=== PATIENT | male | born 1940 | race Caucasian/White ===

== ENCOUNTER 2019-12-28 13:21 | Emergency (ER) | payer OTHER, SELFPAY ==
[2019-12-28] VITALS (19 sets, daily range): BP systolic 103–142; BP diastolic 59–73; PULSE 65–87; RESP 16–31; TEMP 36.2; O2SAT 88–97
--- NOTE | ~2019-12-28 | CT_ITS ---
EXAMINATION: CT abdomen pelvis w con INDICATION: Abdominal pain and diarrhea TECHNIQUE: Computed tomographic images of the abdomen and pelvis were obtained after the administrati on of 100 cc of Omnipaque 350 intravenous contrast. The dose-length product (DLP) was 287.26 mGy-cm. Automated exposure control and iterative reconstruction technique were employed. COMPARISON: None available FINDINGS: Minimal dependent atelectasis is present in the lung bases. The heart size is normal. Calci fied coronary artery atherosclerosis is noted. There is elevation of the left hemidiaphragm. The live r, spleen, pancreas, and adrenal glands are normal. The gallbladder is not identified, likely surgica lly absent. The kidneys are unremarkable. There is calcified atherosclerosis of the aorta and many of the other arteries. There are changes of left inguinal hernia repair. There is a right inguinal nilsa ia containing a short segment of nonobstructed small bowel. A small amount of ascites is present in t he hernia sac. No pathologically enlarged abdominal or pelvic lymph nodes are identified. There is mo derate lumbar spondylosis. IMPRESSION: 1. Right internal hernia containing a short segment of nonobstructed small bowel in a small amount of ascites. Reviewed, dictated and finalized at location A. IMPRESSION: 1. Right internal hernia containing a short segment of nonobstructed small davi l in a small amount of ascites.
[2019-12-28 14:03] LABS: Basophils Percent Auto 0.4 % (0.2-1.2); Eosinophils Percent Auto 0.6 % (0-4.4); Hematocrit 47.7 % (42.0-52.0); Hemoglobin 15.8 g/dL (14.0-18.0); Immature Granulocyte Absolute 0.02 K/mm3 (0.00-0.031); Immature Granulocyte Percent A 0.4 % (0-0.5); Lymphocytes Absolute Auto 1.25 K/mm3 (0.9-3.2); Mean Corpuscular HGB Conc 33.1 g/dl (32-36); Mean Corpuscular Hemoglobin 30.2 pg (26-34); Mean Platelet Volume 11.2 fl (7.4-10.4); Monocytes Absolute Auto 0.4 K/mm3 (0.1-0.6); Monocytes Percent Auto 8.3 % (2.6-8.5); Neutrophils Absolute Auto 3.5 K/mm3 (1.3-6.7); Neutrophils Percent Auto 66.3 % (45.5-73.1); Platelet Count Result 205 k/mm3 (150-375); Red Blood Count 5.24 M/mm3 (4.6-6.20); Red Cell Distribution Width 13.7 % (11.5-14.5); White Blood Count 5.2 K/mm3 (4.5-10.0)
[2019-12-28 14:14] LABS: Alanine Aminotransferase 21 U/L (4-50); Albumin Level 4.5 g/dL (3.5-5.1); Alkaline Phosphatase 44 U/L (38-126); Aspartate Amino Transferase 38 U/L (17-59); Bilirubin,Total 0.5 mg/dL (0.2-1.3); Blood Urea Nitrogen 20 mg/dL (9-20); Calcium 9.4 mg/dL (8.4-10.2); Carbon Dioxide 28 mmol/L (22-30); Chloride 104 mmol/L (98-107); Estimated CRCL calculation 75 ml/min; Estimated Glomerular Filt Rate > 60; Glucose 136 mg/dL (75-110); Lipase 75 U/L (23-300); Potassium 4.4 mmol/L (3.4-5.0); Sodium 140 mmol/L (137-145)
--- NOTE | 2019-12-28 14:20 | ED.NAVMDI ---
HPI - Nausea/Vomiting/Diarrhea General Chief complaint: Nausea/Vomiting/Diarrhea <Yahaira Luis PA-C - Last Filed: 12/28/19 16:54> Stated complaint: diarrhea <Yahaira Luis PA-C - Last Filed: 12/28/19 16:54> Time Seen by Provider: 12/28/19 14:10 <Yahaira Luis PA-C - Last Filed: 12/28/19 16:54> Source: patient <Yahaira Luis PA-C - Last Filed: 12/28/19 16:54> Mode of arrival: wheelchair <Yahaira Luis PA-C - Last Filed: 12/28/19 16:54> Limitations: no limitations <Yahaira Luis PA-C - Last Filed: 12/28/19 16:54> History of Present Illness HPI Narrative: This is a 79 year old male that presents to the ER for diarrhea x 2 weeks. Reports he has had episodes daily of loose stools. No recent antibiotic use. Associated with some abdominal discomfort. Reports he does have history of celiac disease. Denies fever, nausea, vomiting, or hematochezia. <Yahaira Luis PA-C - Last Filed: 12/28/19 16:54> Related Data Allergies/Adverse reactions: Allergies Allergy/AdvReac Type Severity Reaction Status Date / Time No Known Allergies Allergy Unverified 12/05/16 19:25 <Yahaira Luis PA-C - Last Filed: 12/28/19 16:54> Review of Systems Review of Systems: Narrative: CONSTITUTIONAL: Denies fever GASTROINTESTINAL: Reports abdominal pain and diarrhea. Denies nausea, vomiting GENITOURINARY: Denies dysuria or hematuria. <Yahaira Luis PA-C - Last Filed: 12/28/19 16:54> All systems reviewed & are unremarkable except as noted in HPI and below <Yahaira Luis PA-C - Last Filed: 12/28/19 16:54> PMFSH Past Medical History Medical History: Medical History (Updated 12/28/19 @ 16:54 by Yahaira Luis PA-C) Charcot-Linh disease Hyperlipidemia <Yahaira Luis PA-C - Last Filed: 12/28/19 16:54> Social History Social History: Social History Smoking status: Former smoker Alcohol intake: current Gender identity (if verbalized by the patient): Male <Yahaira Luis PA-C - Last Filed: 12/28/19 16:54> Exam Narrative: Exam Narrative: GENERAL: Elderly, well-nourished, and in no acute distress. HEAD: Normocephalic, atraumatic. EYES: EOMI. CHEST: Clear to auscultation. No respiratory distress. No wheezes rales or rhonchi HEART: Regular rate and rhythm. No murmur heard. Normal peripheral pulses. ABDOMEN: Soft, nondistended, normal active bowel sounds. Mild tenderness to palpation throughout the lower abdomen, without guarding EXTREMITIES: Normal range of motion. No edema. SKIN: Warm, dry, no rash. NEURO: No focal deficits. Alert and oriented x3. PSYCH: Normal mood and affect <Yahaira Luis PA-C - Last Filed: 12/28/19 16:54> Course Vital Signs Vital signs: Vital Signs Temperature 97.1 F L 12/28/19 13:28 Pulse Rate 87 12/28/19 13:28 Respiratory Rate 16 12/28/19 13:28 Blood Pressure 113/67 12/28/19 13:28 Pulse Oximetry 97 12/28/19 13:28 Temperature 97.1 F L 12/28/19 13:28 Pulse Rate 65 12/28/19 16:31 Respiratory Rate 21 H 12/28/19 16:31 Blood Pressure 103/59 L 12/28/19 16:31 Pulse Oximetry 96 12/28/19 16:31 <DEBBIE Weems Last Filed: 12/28/19 16:54> Vital Signs Temperature 97.1 F L 12/28/19 13:28 Pulse Rate 87 12/28/19 13:28 Respiratory Rate 16 12/28/19 13:28 Blood Pressure 113/67 12/28/19 13:28 Pulse Oximetry 97 12/28/19 13:28 Temperature 97.1 F L 12/28/19 13:28 Pulse Rate 65 06/16/20 16:31 Respiratory Rate 21 H 12/28/19 16:31 Blood Pressure 103/59 L 12/28/19 16:31 Pulse Oximetry 96 12/28/19 16:31 <Rama Ugalde MD - Last Filed: 12/28/19 18:42> MDM - Nausea/Vomiting/Diarrhea MDM Narrative Medical decision making narrative: This is a 79 year old male that presents to the ER for diarrhea x 2 weeks. Reports no episodes of diarrhea today. No recent antibiotic use. Patient is afebri
[2019-12-28 16:34] LABS: Add Urine Microscopic? YES; Amorphous Sediment Urine Few; Appearance Urine Cloudy (Clear); Bacteria Urine Trace /hpf; Bilirubin Urine Negative (Negative); Blood Urine Negative (Negative); Color Urine Yellow (Yellow); Glucose Urine UA Negative (Negative); Ketones Urine Negative (Negative); Leukocyte Esterase Ur Negative LEU/UL (Negative); Nitrate Urine Negative (Negative); Protein Urine Negative (Negative); Urobilinogen Urine Negative mg/dL (<2.0)
[2019-12-28 16:36] LABS: Specific Grav Ur > 1.060 (1.001-1.035)
== END 2019-12-28 17:11 | disposition home or self-care (01) ==
PROVIDERS: Emergency Provider General Practice; PCP Emergency Medicine
DX: R19.7 Diarrhea, unspecified (principal); K40.90 Unilateral inguinal hernia, without obstruction or gangrene, not specified as recurrent; E78.5 Hyperlipidemia, unspecified; G60.0 Hereditary motor and sensory neuropathy
CPT/HCPCS: 36415; 74177; 80053; 81001; 83690; 85025; 99284; Q9967

== ENCOUNTER 2020-07-21 13:31 | Emergency (ER) | payer OTHER, SELFPAY ==
[2020-07-21 14:02] VITALS: BP 128/63; PULSE 94; RESP 18; TEMP 36.4; O2SAT 100
--- NOTE | 2020-07-21 14:52 | ED.EAR ---
HPI - Ear Problem General Chief complaint: Ear Stated complaint: ear wax buildup Time Seen by Provider: 07/21/20 14:21 Source: patient and RN notes reviewed Mode of arrival: ambulatory Limitations: no limitations History of Present Illness HPI Narrative: Patient presents today requesting earwax removal. States he has been unable to hear out of both ears x1 week. He has tried earwax softening drops in both ears over the past week without relief of symptoms. He does wear bilateral hearing aids as well. Denies any sick symptoms. Denies drainage or blood from the ears. MD Complaint: decreased hearing and other (Bilateral cerumen impactions) Related Data Home Medications Medication Instructions Recorded Confirmed calcium 600 mg capsule See Rx Instructions .ROUTE .COMPLEX 03/15/20 Allergies Allergy/AdvReac Type Severity Reaction Status Date / Time No Known Allergies Allergy Unverified 12/05/16 19:25 Review of Systems Review of Systems: Narrative: CONSTITUTIONAL: Denies body aches, fever, chills, or sweats. EYES: Denies visual changes, redness, or discharge. ENT: Denies rhinorrhea, congestion, sore throat, or otalgia.+ Bilateral cerumen impactions CARDIOVASCULAR: Denies chest pain, palpitations, or edema. RESPIRATORY: Denies cough or dyspnea. GASTROINTESTINAL: Denies abdominal pain, nausea, vomiting, or diarrhea. GENITOURINARY: Denies dysuria or hematuria. SKIN: Denies rash, itching, or wounds. MUSCULOSKELETAL: Denies back pain, joint pain, or myalgia. NEUROLOGIC: Denies headache, numbness, tingling, or weakness. PSYCH: Denies depression or anxiety. [facility] Past Medical History Medical History Charcot-Linh disease Hyperlipidemia Family History Family History Sibling Family history of muscular dystrophy Mother Family history of cardiovascular disease, Onset Age: 91 Father Family history of liver disease, Onset Age: 55 Social History Social History Smoking status: Former smoker Alcohol intake: current Gender identity (if verbalized by the patient): Male Comments At time of signature, I have reviewed and agree with nursing past medical, surgical, social and family history unless otherwise noted. Please see nursing chart for further information. There is no relevant family history pertinent to the presenting complaint Exam Narrative: Exam Narrative: GENERAL: Well-appearing, well-nourished, and in no acute distress. HEAD: Normocephalic, atraumatic. EYES: EOMI. No redness or drainage. Conjunctivae normal. ENT: Mucous membranes pink and moist. Nares clear. No rhinorrhea. Bilateral cerumen impactions. NECK: Normal AROM. Supple. No lymphadenopathy. CHEST: No respiratory distress. EXTREMITIES: Normal range of motion. No edema. SKIN: Warm, dry, no rash. Capillary refill normal. Normal skin turgor. NEURO: No focal deficits. Alert and oriented x3. Gait steady. PSYCH: Normal affect. No signs of depression or anxiety. Course Vital Signs Vital signs: Vital Signs Temperature 97.5 F L 07/21/20 14:02 Pulse Rate 94 07/21/20 14:02 Respiratory Rate 18 07/21/20 14:02 Blood Pressure 128/63 07/21/20 14:02 Pulse Oximetry 100 07/21/20 14:02 Temperature 97.5 F L 07/21/20 14:02 Pulse Rate 94 07/21/20 14:02 Respiratory Rate 18 07/21/20 14:02 Blood Pressure 128/63 07/21/20 14:02 Pulse Oximetry 100 07/21/20 14:02 At time of signature, I have reviewed and agree with nursing past medical, surgical, social and family history unless otherwise noted. Please see nursing chart for further information. There is no relevant family history pertinent to the presenting complaint Procedures Ear Wax Removal Both Ears: Ear Wax Removal Date: 07/21/20 Ear Wax Removal Ti
--- NOTE | 2020-07-21 14:53 | PC.NURSE ---
stated feels much better, now noone has to yell. after ear wax removal flush done, berny. hearing aids put back in ears upon pt request.
== END 2020-07-21 14:56 | disposition home or self-care (01) ==
PROVIDERS: Emergency Provider Nurse Practitioner; PCP Emergency Medicine
DX: H61.23 Impacted cerumen, bilateral (principal); Z87.891 Personal history of nicotine dependence; E78.5 Hyperlipidemia, unspecified; G60.0 Hereditary motor and sensory neuropathy
CPT/HCPCS: 69210; 99212; G0463

== ENCOUNTER 2020-09-28 13:59 | Emergency (ER) | payer OTHER, SELFPAY ==
--- NOTE | ~2020-09-28 | XR_ITS ---
EXAMINATION: XR knee RT 2V DATE: 09/28/2020 14:47 INDICATION: Right knee pain. TECHNIQUE: 2 views of right knee were obtained. COMPARISON: None. FINDINGS: There is a transverse fracture of metaphysis of proximal tibia. The distal fracture fragmen t demonstrates 10 degrees posterior angulation and one cortical width medial displacement. There is a transverse fracture of neck of proximal fibula with impaction. 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 No knee joint effusion. IMPRESSION: 1. Transverse fracture of metaphysis of proximal tibia. 2. Transverse fracture of neck of proximal fibula. Reviewed, dictated and finalized at location A.
--- NOTE | 2020-09-28 14:24 | ED.LOWEXIN ---
HPI - Extremity Injury (Lower) General Chief Complaint: Extremity Injury, Lower Stated Complaint: right knee pain Time Seen by Provider: 09/28/20 14:24 Source: patient and RN notes reviewed Limitations: no limitations History of Present Illness HPI Narrative: 80 yo male presents to the [facility] with bilateral knee pain, worse on the right then the left. is with him. States that he was transferring from the couch to the motor scooter via slide board and fell onto his knees yesterday. 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 Related Data Home Medications Medication Instructions Recorded Confirmed calcium 600 mg capsule See Rx Instructions .ROUTE .COMPLEX 03/15/20 Allergies Allergy/AdvReac Type Severity Reaction Status Date / Time No Known Allergies Allergy Unverified 12/05/16 19:25 Review of Systems Review of Systems: Narrative: CONSTITUTIONAL: Denies fever, chills, or sweats. EYES: Denies visual changes, redness, or discharge. ENT: Denies rhinorrhea, congestion, sore throat, or otalgia. CARDIOVASCULAR: Denies chest pain, palpitations, or edema. RESPIRATORY: Denies cough or dyspnea. GASTROINTESTINAL: Denies abdominal pain, nausea, vomiting, or diarrhea. GENITOURINARY: Denies dysuria or hematuria. SKIN: Denies rash or itching. MUSCULOSKELETAL: Denies back pain or myalgia. Reports right knee pain with swelling NEUROLOGIC: Denies headache, numbness, or weakness. PSYCHIATRIC: Denies anxiety or depression. All other systems reviewed are negative, except as documented in HPI. [facility] Past Medical History Medical History Charcot-Linh disease Hyperlipidemia Family History Family History Sibling Family history of muscular dystrophy Mother Family history of cardiovascular disease, Onset Age: 91 Father Family history of liver disease, Onset Age: 55 Social History Social History Smoking status: Former smoker Alcohol intake: current Gender identity (if verbalized by the patient): Male Comments At the time of my signature, I reviewed and agree with the nursing past medical, surgical, social, and family history. There is no relevant family history pertinent to the patient complaint. Exam Narrative: Exam Narrative: GENERAL: This is a well-nourished, well-developed patient, in no apparent distress. HEAD: normocephalic, atraumatic. EYES: PERRL. Sclera clear/white. Vision is grossly intact. EARS: External ears normal NECK: Neck supple, non-tender. CARDIOVASCULAR: Regular rate and rhythm without murmurs, gallops, or rubs. RESPIRATORY: Clear to auscultation. Breath sounds equal bilaterally. No wheezes, rales, or rhonchi. GASTROINTESTINAL: Abdomen soft, non-tender. SKIN: warm, intact with no suspicious lesions or rash, good texture and turgor. NEURO: awake, alert, and oriented to person, place and time. There were no obvious focal neurologic abnormalities. EXTREMITIES: Right knee joint tenderness, swelling/ large effusion. Bilateral AFO braces in place due to past medical. BACK: Nontender without deformity. Course Course Emergency Course: [address] Tolbetr. He states he would like to look at the x-ray and will call back. 1520 Dr. Tolbert called back, states he did look at the x-ray and believe it is more subacute at least 6 weeks post trauma. Recommending a knee immobilizer, be nonweightbearing. With patient and . Patient denies any recent trauma to the area. Denies falling or any other issues with his knees. States that he broke his patella in 2006 he believes. Vital Signs Vital signs: Vital Signs Temperature 96.7 F L 09/28/20 14:31 Pulse Rate 86 09/28/20 14:31 Respiratory Rate 16 09/28/20 14:31 Blood Pressure 141/62 H 09/28/20 14:31 Puls
[2020-09-28 14:31] VITALS: BP 141/62; PULSE 86; RESP 16; TEMP 35.9; O2SAT 98
--- NOTE | 2020-09-28 15:02 | PC.NURSE ---
parts department manager consulted with dr. cannon.
== END 2020-09-28 15:36 | disposition home or self-care (01) ==
PROVIDERS: Emergency Provider Nurse Practitioner; PCP Emergency Medicine
DX: S82.101A Unspecified fracture of upper end of right tibia, initial encounter for closed fracture (principal); S82.831A Other fracture of upper and lower end of right fibula, initial encounter for closed fracture; W17.89XA Other fall from one level to another, initial encounter; G60.0 Hereditary motor and sensory neuropathy; E78.5 Hyperlipidemia, unspecified
CPT/HCPCS: 73560; 99214; G0463; L1830

== ENCOUNTER 2020-10-01 14:19 | Emergency (ER) | payer OTHER, SELFPAY ==
--- NOTE | ~2020-10-01 | US_ITS ---
US venous doppler LE RT DATE: 10/01/2020 16:24 INDICATION: Right leg swelling. Recent tibial and fibular fractures TECHNIQUE: Real-time and color flow imaging and Doppler analysis of the veins of the right lower extr emity COMPARISON: None FINDINGS: The right greater saphenous vein is patent. There is spontaneous and phasic flow and normal augmentation and color flow signal and normal compression of the deep veins of the right lower extre mity. IMPRESSION: No evidence of deep venous thrombosis of right leg Reviewed, dictated and finalized at Location [facility]. Reviewed, dictated and finalized at location A.
--- NOTE | ~2020-10-01 | XR_ITS ---
XR chest 2V DATE: 10/01/2020 14:40 INDICATION: Weakness TECHNIQUE: AP and lateral views COMPARISON: None FINDINGS: There is prominent elevation of the left leaf of the diaphragm. Heart size is not optimally evaluated (because of magnification and elevated diaphragm) but likely en larged. There is mild compressive atelectasis at the left lung base secondary to the diaphragm elevation. Oth erwise no pulmonary infiltrate or consolidation, pleural effusion, pulmonary vascular congestion or p neumothorax is evident. Diffuse osteopenia. There is prominent reversal S-shaped scoliosis of the thoracolumbar spine and thoracic kyphosis. Ther e are multiple fracture deformities of the spine including prominent loss of height and anterior wedg ing of a lower thoracic vertebral body. IMPRESSION: Prominent elevation of left diaphragm Probable cardiomegaly Minimal atelectasis at left lung base; otherwise no active pulmonary disease Diffuse osteopenia, reverse S-shaped thoracolumbar scoliosis and multiple fracture deformities of the spine Reviewed, dictated and finalized at location A. IMPRESSION: Prominent elevation of left diaphragm Probable cardiomegaly Minimal atelectasis at left lung base; otherwise no active pulmonary disease Diffuse osteopenia, reverse S-shaped thoracolumbar scoliosis and multiple fract ure deformities of the spine
[2020-10-01 14:17] VITALS: BP 149/93; PULSE 75; RESP 20; TEMP 36.9; O2SAT 92
--- NOTE | 2020-10-01 14:24 | ECG_ITS ---
Measurements Intervals [place] Rate: 73 P: 29 MO: 177 QRS: -11 QRSD: 107 T: 27 QT: 361 QTc: 400 Interpretive Statements SINUS RHYTHM INCOMPLETE RIGHT BUNDLE BRANCH BLOCK BASELINE WANDER- I, III, AVF BORDERLINE ECG Electronically Signed On 10-01-2020 16:52:58 CDT by Vishal Nava D.O.
--- NOTE | 2020-10-01 15:07 | ED.GENADULT ---
HPI - General Adult General Chief complaint: Weakness Stated complaint: weakness Time Seen by Provider: 10/01/20 14:35 Source: patient History of Present Illness HPI narrative: Patient is a 80 y/o male complaining of right leg pain since 4 days ago when he fell. He state that he was seen in urgent care 3 days ago and diagnosed with proximal tib/fib fracture. Knee immobilizer was applied. Patient states that he has difficulty using the knee immobilizer because it's bulky. He is requesting smaller device for his tib/fib fracture. He also feels weak. He has history of muscular dystrophy and he uses a scooter to get around. Related Data Allergies Allergy/AdvReac Type Severity Reaction Status Date / Time No Known Allergies Allergy Verified 10/01/20 14:21 Review of Systems Constitutional: Constitutional: Denies chills, Denies fever(s), Denies headache(s) and Reports weakness Eyes: Eyes: Denies blurry vision ENT: Denies headache(s) and Denies neck pain Cardiovascular: Cardiovascular: Denies chest pain and Denies dyspnea Respiratory: Respiratory: Denies cough and Denies dyspnea Gastrointestinal: Gastrointestinal: Denies abdominal pain, Denies diarrhea, Denies nausea and Denies vomiting Genitourinary: Genitourinary: Denies hematuria and Denies dysuria Musculoskeletal: Musculoskeletal: Reports as per HPI, Denies back pain, Denies neck pain and Reports other (right leg pain) Neurologic: Denies headache(s) and Reports weakness PMFSH Past Medical History Medical History Charcot-Linh disease Hyperlipidemia Family History Family History Sibling Family history of muscular dystrophy Mother Family history of cardiovascular disease, Onset Age: 91 Father Family history of liver disease, Onset Age: 55 Social History Social History Smoking status: Former smoker Alcohol intake: current Gender identity (if verbalized by the patient): Male Exam Const: General: no acute distress and well developed Orientation/consciousness: oriented to person, oriented to place, oriented to time and patient oriented x3 HENMT: Head: normocephalic Ears: external ears normal General nose exam: Normal external nose present Eyes: General: appearance normal, both eyes and all related structures Conjunctivae: conjunctivae normal Neck: Neck: normal visual inspection and full ROM Chest: Chest palpation & inspection: normal inspection of the chest and no tenderness Resp: Effort & Inspection: normal respiratory effort Auscultation: clear to auscultation bilaterally Cardio: Rate: regular rate Rhythm: regular rhythm GI: GI Palp: No abdominal tenderness and Yes Soft to palpation Skin: General skin exam: normal color, turgor normal and erythema (right lower leg) Neuro: General: oriented to person, oriented to place, oriented to time and patient oriented x3 Cognition (Neuro): normal cognition Motor exam (neuro): Other motor observations present (paraplegic) Extrem: General: normal to inspection, full ROM, no pedal edema and muscle atrophy Right lower extremity: edema (swelling right leg) Psych: Appearance: grossly normal Mental Status: mental status grossly normal Affect: normal affect Course Consultations Consultation #1: Discussed with Dr. Tolbert, who recommends using smaller knee immobilizer or trimming it or apply OCL. Date: 10/01/20 Time: 16:58 Vital Signs Vital signs: Vital Signs Temperature 36.9 C 10/01/20 14:17 Pulse Rate 75 10/01/20 14:17 Respiratory Rate 20 10/01/20 14:17 Blood Pressure 149/93 H 10/01/20 14:17 Pulse Oximetry 92 10/01/20 14:17 Temperature 36.9 C 10/01/20 14:17 Pulse Rate 86 10/01/20 18:02 Respiratory Rate 20 10/01/20 14:17 Blood Pressure 140/86 10/01/20 18:02 Pulse Oximetry 95 10/01/20 18:02
[2020-10-01 15:25] LABS: Basophils Percent Auto 0.3 % (0.2-1.2); Eosinophils Absolute Auto 0.1 K/mm3 (0-0.3); Eosinophils Percent Auto 1.9 % (0-4.4); Hematocrit 37.1 % (42.0-52.0); Hemoglobin 12.3 g/dL (14.0-18.0); Immature Granulocyte Absolute 0.03 K/mm3 (0.00-0.031); Immature Granulocyte Percent A 0.4 % (0-0.5); Lymphocytes Absolute Auto 1.04 K/mm3 (0.9-3.2); Lymphocytes Percent Auto 14.9 % (18.3-44.2); Mean Corpuscular HGB Conc 33.2 g/dl (32-36); Mean Corpuscular Hemoglobin 30.1 pg (26-34); Mean Corpuscular Volume 90.9 fl (80-100); Mean Platelet Volume 10.7 fl (7.4-10.4); Monocytes Absolute Auto 0.8 K/mm3 (0.1-0.6); Monocytes Percent Auto 11.6 % (2.6-8.5); Neutrophils Absolute Auto 4.9 K/mm3 (1.3-6.7); Neutrophils Percent Auto 70.9 % (45.5-73.1); Platelet Count Result 234 k/mm3 (150-375); Red Blood Count 4.08 M/mm3 (4.6-6.20); Red Cell Distribution Width 13.6 % (11.5-14.5)
[2020-10-01 15:31] LABS: Add Urine Microscopic? YES; Amorphous Sediment Urine Moderate; Appearance Urine Turbid (Clear); Bilirubin Urine Negative (Negative); Blood Urine Negative (Negative); Color Urine Amber (Yellow); Glucose Urine UA Negative (Negative); Ketones Urine Negative (Negative); Leukocyte Esterase Ur Negative LEU/UL (Negative); Mucus Urine Rare /lpf; Nitrate Urine Negative (Negative); Protein Urine 2+ mg/dL (Negative); Specific Grav Ur 1.029 (1.001-1.035); Urobilinogen Urine Negative mg/dL (<2.0); WBC Urine 0-3 /hpf
[2020-10-01 15:36] LABS: Alanine Aminotransferase 20 U/L (4-50); Albumin Level 3.7 g/dL (3.5-5.1); Alkaline Phosphatase 42 U/L (38-126); Anion Gap 4 mmol/L (8-16); Aspartate Amino Transferase 36 U/L (17-59); Bilirubin,Total 0.6 mg/dL (0.2-1.3); Blood Urea Nitrogen 17 mg/dL (9-20); Calcium 9.1 mg/dL (8.4-10.2); Carbon Dioxide 32 mmol/L (22-30); Chloride 103 mmol/L (98-107); Estimated CRCL calculation 87 ml/min; Estimated Glomerular Filt Rate > 60; Glucose 119 mg/dL (75-110); Potassium 4.4 mmol/L (3.4-5.0); Sodium 139 mmol/L (137-145)
[2020-10-01] MEDS: SODIUM CHLORIDE 0.9% IV 1,000 ML 999 ML IV CONT (17:17)
[2020-10-01 18:02] VITALS: BP 140/86; PULSE 86; O2SAT 95
== END 2020-10-01 18:39 | disposition home or self-care (01) ==
PROVIDERS: Emergency Medicine; Emergency Provider Emergency Medicine; PCP Emergency Medicine
DX: R53.1 Weakness (principal); S82.101D Unspecified fracture of upper end of right tibia, subsequent encounter for closed fracture with routine healing; S82.831D Other fracture of upper and lower end of right fibula, subsequent encounter for closed fracture with routine healing; G71.00 Muscular dystrophy, unspecified; G60.0 Hereditary motor and sensory neuropathy; E78.5 Hyperlipidemia, unspecified; Z87.891 Personal history of nicotine dependence; W19.XXXD Unspecified fall, subsequent encounter; I45.10 Unspecified right bundle-branch block; M85.88 Other specified disorders of bone density and structure, other site
CPT/HCPCS: 36415; 71046; 80053; 81001; 85025; 93005; 93971; 96360; 99284; J7030

== ENCOUNTER 2020-11-17 22:14 | Inpatient (IN) | payer OTHER, SELFPAY ==
[2020-11-17] VITALS (19 sets, daily range): BP systolic 75–152; BP diastolic 58–89; PULSE 104–133; RESP 8–33; TEMP 36.3; O2SAT 79–92
--- NOTE | ~2020-11-17 | CT_ITS ---
EXAMINATION: CTA chest PE protocol DATE: 11/18/2020 08:52 CDT INDICATION: Pulmonary embolism TECHNIQUE: Computed tomographic angiography (CTA) of the chest was performed with 100 mL Omnipaque-35 0 intravenous contrast. The dose-length product was 202.49 mGy-cm. Maximum intensity projection 3D-re constructions of the aorta and other arteries were constructed by the technologist on a separate work station. Automated exposure control and iterative reconstruction technique were employed. COMPARISON: None. FINDINGS: Study is technically adequate without evidence for pulmonary embolism. There is patchy grou ndglass opacification with extensive bilateral consolidation dependently. There are multiple focal areas of air collections in the periphery of the lower lobes, right greater than left. Cardiomegaly. No thoracic lymphadenopathy. IMPRESSION: 1. Extensive mixed groundglass opacification and airspace consolidation with peripheral foci of air c ollections in the periphery of the lower lobes. Differential diagnosis includes edema, pneumonia and/ or atelectasis. Cannot exclude empyema. Reviewed, dictated and finalized at location A. IMPRESSION: 1. Extensive mixed groundglass opacification and airspace consolidation with pe ripheral foci of air collections in the periphery of the lower lobes. Different ial diagnosis includes edema, pneumonia and/or atelectasis. Cannot exclude empy pascale.
--- NOTE | ~2020-11-17 | XR_ITS ---
EXAMINATION: XR chest ET placement DATE: 11/17/2020 22:41 INDICATION: Intubation. TECHNIQUE: A single frontal view of the chest was obtained. COMPARISON: Chest 2 views 10/01/2020 FINDINGS: There is chronic elevation of left hemidiaphragm. There are airspace opacities in all lung zones bilaterally. No pleural effusion or pneumothorax. Cardiomegaly is noted. The endotracheal tube tip is 4.1 cm above the rakel. The nasogastric tube tip is in the stomach. IMPRESSION: 1. Diffuse lung disease, consistent with pulmonary edema versus pneumonia. 2. Cardiomegaly. Reviewed, dictated and finalized at location A.
--- NOTE | ~2020-11-17 | XR_ITS ---
EXAMINATION: XR abdomen NG/feed tube insert DATE: 11/17/2020 22:41 INDICATION: Nasogastric tube placement. TECHNIQUE: An upright view of the abdomen was obtained. COMPARISON: CT abdomen and pelvis 12/28/2019 FINDINGS: The lower abdomen is excluded. There is gaseous distention of small and large bowel. The na sogastric tube tip is in the stomach. IMPRESSION: 1. Nasogastric tube tip in the stomach. 2. Gaseous distention of large and small bowel, consistent with adynamic ileus versus bowel obstructi on. Reviewed, dictated and finalized at location A. IMPRESSION: 1. Nasogastric tube tip in the stomach. 2. Gaseous distention of large and small bowel, consistent with adynamic ileus versus bowel obstruction.
--- NOTE | 2020-11-17 22:14 | PC.NURSE ---
Per EDP Anjelica via verbal order readback give 4mg Versed and 100mg Succinylcholine for intubation.
--- NOTE | 2020-11-17 22:17 | PC.NURSE ---
Patient intubated at this time by KENDRA Dejesus 7.5mm ETT Good CO2 color change Breath sounds bilaterally Equal rise and fall of chest 23 at the lip
--- NOTE | 2020-11-17 22:17 | PC.NURSE ---
NPA removed after intubation.
--- NOTE | 2020-11-17 22:21 | ECG_ITS ---
Measurements Intervals [place] Rate: 125 P: -16 [place]: 178 QRS: 138 QRSD: 106 T: 39 QT: 307 QTc: 444 Interpretive Statements SINUS TACHYCARDIA RIGHT AXIS DEVIATION INCOMPLETE RIGHT BUNDLE BRANCH BLOCK LOW VOLTAGE- LIMB LEADS BASELINE ARTIFACT- AVF ABNORMAL ECG Electronically Signed On 11-18-2020 7:42:44 CDT by Vishal Nava D.O.
--- NOTE | 2020-11-17 22:23 | PC.NURSE ---
Unable to draw blood cultures after multiple RN attempt. Phlebotomy contacted at this time.
--- NOTE | 2020-11-17 22:23 | ED.SOB ---
HPI - SOB/Dyspnea General Source: EMS and RN notes reviewed Mode of arrival: EMS Limitations: clinical condition History of Present Illness HPI Narrative: Patient is 80 years old white male brought to the emergency room by ambulance because of shortness of breath, patient became agonal in the way to our emergency room, EMT tried and could not intubate . On arrival to the emergency room patient was on Ambu bag, unresponsive to verbal command. No family member at the bedside. Later in the arrived to the emergency room and told me that patient been having wheezing all day today, got worse when he laid down to sleep at night. Also telling me that patient does not have any medical disease, currently on calcium supplement, vitamin and the fluoxetine. Patient does not smoke or drink. And patient is DNR. Patient had Covid vaccine few weeks ago Related Data Home Medications Medication Instructions Recorded Confirmed calcium carbonate 600 mg calcium 600 mg PO DAILY 10/18/20 11/18/20 (1,500 mg) tablet ibuprofen 200 mg tablet 400 mg PO Q6H PRN 10/18/20 11/18/20 Allergies Allergy/AdvReac Type Severity Reaction Status Date / Time No Known Allergies Allergy Verified 11/18/20 04:24 Review of Systems Review of Systems: ROS unobtainable: Yes unobtainable due to endotracheal tube and unobtainable due to medical condition PMFSH Past Medical History Medical History Anxiety Charcot-Linh disease Hyperlipidemia Ocular migraine Family History Family History Sibling Family history of muscular dystrophy Mother Family history of cardiovascular disease, Onset Age: 91 Father Family history of liver disease, Onset Age: 55 Social History Social History Smoking status: Former smoker Alcohol intake: never Substance use: never Substance use type: does not use Gender identity (if verbalized by the patient): Male Sexual Orientation (if Verbalized by the Patient): Straight or Heterosexual Spiritual care concerns: No Exam Narrative: Exam Narrative: General appearance: Well-developed, well-nourished, and Ambu bag, unresponsive to verbal commands, no family member at the bedside Skin: Normal color, cold to touch Head: Normocephalic, nontraumatic Eyes: Clear conjunctiva ENT: Oropharynx normal, ears normal, nose normal edentulous Chest and respiratory: Airway patent, no respiratory distress, no accessory muscle use Heart: Regular rate/rhythm Abdomen: Soft, nontender, no organomegaly, quiet bowel sounds Vascular: Normal peripheral pulses, normal capillary refill. Neurologic: Unresponsive to verbal commands Course Reevaluation(s) Reevaluation #1: Patient's family decided to extubate. Patient was extubated, BiPAP started, patient saturation is very poor 66% on 100% FiO2, and son at the bedside expecting that patient will pass away, probably in few hours. Date: 11/18/20 Time: 01:05 Reevaluation #2: The and son were notified that the patient condition is critical and high likely will pass away in the next few hours because my back is not suitable for his condition at this time. They understood and expecting that the patient will pass away soon. They are comfortable with their decision about extubation and keep repeating that the patient would not be agreeable about intubation. Patient is going to CAT scan to get a CTA to rule out PE. Date: 11/18/20 Time: 01:31 Consultations Consultation #1: Dr. Anu Tran. Received a text message for the EKG and requested to
--- NOTE | 2020-11-17 22:34 | PC.NURSE ---
Patient's family arrived to ED. EDP Anjelica spoke with family and they report patient is a DNR. Family aware he is intubated and states they are okay with him remaining intubated while waiting for lab results.
--- NOTE | 2020-11-17 22:42 | PC.NURSE ---
Per KENDRA Dejesus, give 2mg Versed IVP.
--- NOTE | 2020-11-17 22:50 | PC.NURSE ---
Phlebotomy unable to draw blood cultures. KENDRA lovett.
[2020-11-17 23:28] LABS: Basophils Absolute Auto 0.1 K/mm3 (0.0-0.1); Basophils Percent Auto 0.7 % (0.2-1.2); Eosinophils Absolute Auto 0.1 K/mm3 (0-0.3); Eosinophils Percent Auto 0.8 % (0-4.4); Hematocrit 51.5 % (42.0-52.0); Hemoglobin 15.9 g/dL (14.0-18.0); Immature Granulocyte Absolute 0.22 K/mm3 (0.00-0.031); Immature Granulocyte Percent A 1.4 % (0-0.5); Lymphocytes Absolute Auto 2.13 K/mm3 (0.9-3.2); Lymphocytes Percent Auto 13.7 % (18.3-44.2); Mean Corpuscular HGB Conc 30.9 g/dl (32-36); Mean Corpuscular Hemoglobin 29.6 pg (26-34); Mean Corpuscular Volume 95.9 fl (80-100); Mean Platelet Volume 10.5 fl (7.4-10.4); Monocytes Absolute Auto 0.5 K/mm3 (0.1-0.6); Monocytes Percent Auto 3.2 % (2.6-8.5); Neutrophils Absolute Auto 12.4 K/mm3 (1.3-6.7); Neutrophils Percent Auto 80.2 % (45.5-73.1); Platelet Count Result 356 k/mm3 (150-375); Red Blood Count 5.37 M/mm3 (4.6-6.20); Red Cell Distribution Width 13.8 % (11.5-14.5); White Blood Count 15.5 K/mm3 (4.5-10.0)
[2020-11-17] MEDS: LACTATED RINGERS 1,000 ML 999 ML IV CONT (23:38)
[2020-11-17 23:39] LABS: Alanine Aminotransferase 32 U/L (4-50); Albumin Level 3.9 g/dL (3.5-5.1); Alkaline Phosphatase 116 U/L (38-126); Anion Gap 11 mmol/L (8-16); Aspartate Amino Transferase 72 U/L (17-59); Bilirubin,Total 0.3 mg/dL (0.2-1.3); Blood Urea Nitrogen 22 mg/dL (9-20); Calcium 9.1 mg/dL (8.4-10.2); Carbon Dioxide 23 mmol/L (22-30); Chloride 103 mmol/L (98-107); Estimated Glomerular Filt Rate > 60; Glucose 226 mg/dL (75-110); Potassium 4.8 mmol/L (3.4-5.0); Sodium 137 mmol/L (137-145)
--- NOTE | 2020-11-17 23:40 | PC.NURSE ---
Patient beginning to pull at ETT and IV lines, EDZak Dejesus notified. EDZak Dejesus also informed patient's blood pressure is 83/65. Per KENDRA Dejesus via verbal order read-back, place patient's wrists in soft restraints.
[2020-11-17 23:43] LABS: INR 0.9; Prothrombin Time 13.2 Seconds (11.1-14.7)
[2020-11-17 23:44] LABS: Partial Thromboplastin Time 35.5 SECONDS (22.3-36.8)
[2020-11-17 23:54] LABS: Base Excess ABG -6.2 mEq/l (+/-2.0); Fractional Inspired Oxygen 100 %; Oxygen Content ABG 18.8 %vol (16.0-22.0); Oxygen Saturation ABG 87.2 % (95.0-100.0); Oxyhemoglobin 87.9 % THb (90.0-100.0); PCO2 ABG 47.9 mmHg (35.0-45.0); PO2 ABG 60.1 mmHg (80.0-100.0); Total Hemoglobin 15.2 g/dL (12.0-18.0)
[2020-11-17 23:56] LABS: Arterial Blood Gas PEEP 7 cmH2O; Arterial Blood Gas Tidal Volume 350 ml; Arterial Blood Gas Vent Mode CMV; Arterial Blood Gas Ventilator rate 16 /MIN; Device VENTILATOR; Site Drawn RIGHT BRACHIAL
[2020-11-17 23:57] LABS: NT Pro B Type Natriuretic Pept 495 pg/mL (5-100); Troponin I 0.148 ng/mL (0.000-0.034)
[2020-11-18] VITALS (40 sets, daily range): BP systolic 83–177; BP diastolic 44–113; PULSE 93–139; RESP 19–59; TEMP 35.7–36.6; O2SAT 63–96; BMI 20.4
[2020-11-18] LABS: D Dimer 13.61 ug/mL (<0.48)
--- NOTE | 2020-11-18 | PC.NURSE ---
Family in room with patient. Family states they would like the ET tube removed. KENDRA Dejesus in room talking with family.
--- NOTE | 2020-11-18 00:02 | ECG_ITS ---
Measurements Intervals [place] Rate: 130 P: -15 TN: 186 QRS: 238 QRSD: 101 T: 28 QT: 296 QTc: 435 Interpretive Statements SINUS TACHYCARDIA RIGHT AXIS DEVIATION INCOMPLETE RIGHT BUNDLE BRANCH BLOCK INFERIOR INFARCT, AGE INDETERMINATE LATERAL INFARCT, AGE INDETERMINATE BASELINE WANDER- V6 ABNORMAL ECG Electronically Signed On 11-18-2020 7:36:49 CDT by Vishal aNva D.O.
--- NOTE | 2020-11-18 00:13 | PC.NURSE ---
EDP in room to remove ETT. Patient placed on BiPAP at this time.
--- NOTE | 2020-11-18 00:31 | PC.NURSE ---
Patient 69% on BiPAP, family and EDP Dejesus aware of O2 saturations. ED respiratory adjusting settings. Patient restless in room and attempting to remove BiPAP mask.
--- NOTE | 2020-11-18 00:43 | PC.NURSE ---
Patient restless in bed, appears uncomfortable, and is attempting to remove BiPAP mask. Per EDP Dejesus via verbal order read-back, give 2mg Versed IVP.
[2020-11-18 00:58] LABS: Alveolar/Arterial O2 Gradient 514.8 mmHg; Fractional Inspired Oxygen 100 %; HCO3 ABG 27.8 mEq/l (22.0-26.0); PO2 ABG 51.9 mmHg (80.0-100.0); PO2 FiO2 Ratio Arterial Blood 0.52 %
[2020-11-18 01:00] LABS: PCO2 ABG 146.3 mmHg (35.0-45.0); pH ABG 6.897 (7.350-7.450)
[2020-11-18 01:01] LABS: Device NON-INVASIVE VENT; Non-Invasive Expiratory Pressure 6 CMH2O; Non-Invasive Inspiratory Pressure 14 CMH2O; Non-Invasive Vent Rate 14 /MIN; Oxygen Saturation ABG 58.6 % (95.0-100.0); Site Drawn RIGHT BRACHIAL
[2020-11-18] MEDS: ENOXAPARIN 80 MG/0.8 ML SYRINGE 60 MG SUB-Q (01:46)
--- NOTE | 2020-11-18 01:59 | PC.NURSE ---
KENDRA Dejesus spoke to patient's family to discuss how critical the patient is. Family understands and would like patient to remain on BiPAP for comfort instead of being intubated. KENDRA Dejesus states to continue to give medications.
--- NOTE | 2020-11-18 02:31 | PC.NURSE ---
Patient's family wishes patient to be placed on comfort care. Antibiotics stopped at this time.
--- NOTE | 2020-11-18 03:15 | PC.NURSE ---
verbal order from dr welch to cancel covid swab. house superviser made aware. lab notified.
--- NOTE | 2020-11-18 03:23 | PM.IMHP ---
H&P: HPI History of Present Illness Date/Time: 11/18/20 03:23 Chief Complaint: respiratory failure Narrative: Patient is 80 years old white male with hx of muscular dystrophy, non ambulatory status, wheelchair bound presents to the ED with shortness of breath. On the way to the ED, patient became agonal. EMT was not able to intubate and was ambu bagged to the ED. He was unreponsive and he was then emergently intubated in the ED. Later family arrived and mentioned he is a DNR and family requested extubated. He was then eventually extubated. His workup revelaed cxr with diffuse lung disease pulmonary edema vs pneumonia. He has already been vaccinatd with COVID. he was then placed on BIPAP. he is however remains hypoxic in 60s to 70s. The family has decdied for comfort measures to be implemented. He is further getting admitted to the hospital for comfort care. Family understands with his situation he is not able to survive for very long. Review of Systems Review of Systems: ROS unobtainable: Yes unobtainable due to medical condition and unobtainable due to mental status PMFSH Past Medical History Medical History Anxiety Charcot-Linh disease Hyperlipidemia Ocular migraine Family History Family History Sibling Family history of muscular dystrophy Mother Family history of cardiovascular disease, Onset Age: 91 Father Family history of liver disease, Onset Age: 55 Social History Social History Smoking status: Former smoker Alcohol intake: current Gender identity (if verbalized by the patient): Male Meds Home Medications and Allergies Home Medications Medication Instructions Recorded Confirmed Type fluoxetine 10 mg capsule 10 mg PO DAILY #90 cap 05/24/20 10/18/20 Rx calcium carbonate 600 mg calcium 600 mg PO DAILY 10/18/20 10/18/20 History (1,500 mg) tablet ibuprofen 200 mg tablet 200 mg PO Q6H PRN 10/18/20 10/18/20 History Allergies Allergy/AdvReac Type Severity Reaction Status Date / Time No Known Allergies Allergy Verified 10/01/20 14:21 Vital Signs Vital Signs - 24 hr 11/17/20 22:04 11/17/20 22:30 11/17/20 22:45 Temperature 97.3 F L Pulse Rate 133 H 124 H Respiratory Rate 8 L 27 H Blood Pressure 152/89 H Pulse Oximetry 79 L 90 90 11/17/20 22:46 11/17/20 22:47 11/17/20 22:50 Temperature Pulse Rate 126 H 126 H 125 H Respiratory Rate Blood Pressure 114/81 Pulse Oximetry 90 89 L 90 11/17/20 22:51 11/17/20 22:56 11/17/20 23:00 Temperature Pulse Rate 125 H 123 H 122 H Respiratory Rate 32 H 31 H Blood Pressure 105/77 98/71 L Pulse Oximetry 88 L 88 L 88 L 11/17/20 23:01 11/17/20 23:15 11/17/20 23:22 Temperature Pulse Rate 120 H 115 H 111 H Respiratory Rate 31 H 33 H 33 H Blood Pressure 102/74 88/72 L Pulse Oximetry 88 L 89 L 89 L 11/17/20 23:26 11/17/20 23:28 11/17/20 23:29 Temperature Pulse Rate 111 H 115 H 114 H Respiratory Rate 21 H 21 H 28 H Blood Pressure 75/58 L 86/68 L 88/69 L Pulse Oximetry 90 85 L 89 L 11/17/20 23:30 11/17/20 23:41 11/17/20 23:45 Temperature Pulse Rate 112 H 104 H 109 H Respiratory Rate 27 H 24 H 19 Blood Pressure 103/76 Pulse Oximetry 88 L 86 L 92 11/17/20 23:46 11/18/20 00:05 11/18/20 00:08 Temperature Pulse Rate 109 H 136 H 119 H Respiratory Rate 22 H 31 H 19 Blood Pressure 110/72 143/109 H Pulse Oximetry 92 92 11/18/20 00:12 11/18/20 00:18 11/18/20 00:26 Temperature Pulse Rate 122 H 139 H 138 H Respiratory Rate 29 H 33 H 30 H Blood Pressure 127/88 Pulse Oximetry 66 L 11/18/20 00:28 11/18/20 00:30 11/18/20 00:31 Temperature 97.8 F Pulse Rate 130 H 129 H Respiratory Rate 32 H 34 H Blood Pressure 177/113 H Pulse Oximetry 68 L 65 L 65 L 11/18/20 00:41 11/18/20 00:42 11/18/20
[2020-11-18] MEDS: LORazepam INJ (*CRX) 2 MG/ML VIAL IV PUSH ×7 (03:34→23:46)
--- NOTE | 2020-11-18 04:05 | ADMGEN ---
This patient, Sarabjit Garcia, was admitted to IMU Room 231-01 on 11/18/20 at 0338. Patient/family oriented to hospital policies and general routines including ID bracelet, bed and alarms, visiting hours, pain management, procedures, bathroom and other care routines, personal items, smoking policy, room service/diet, and visiting hours. Information on how to activate the Rapid Response Team has been discussed. Patient/Family are encouraged to report perceived risks to care and to ask questions if they do not understand what they are told or what they should do.
[2020-11-18] MEDS: ATROPINE SULFATE 1% OPHTH SOLN 5 ML BOTTLE SUBLINGUAL ×3 (04:35→21:22)
[2020-11-18] MEDS: MORPHINE SULFATE (*CRX) 2 MG/ML INJ IV PUSH ×8 (09:17→21:13)
--- NOTE | 2020-11-18 11:17 | PM.IMPN ---
Progress Note: A&P Assessment and Plan (1) Acute respiratory failure: Qualifiers: Respiratory failure complication: hypoxia Qualified Code(s): J96.01 - Acute respiratory failure with hypoxia Code(s): J96.00 - Acute respiratory failure, unspecified whether with hypoxia or hypercapnia Status: Acute Assessment and Plan: Comfort measures patient is DNR (2) Pneumonia: Qualifiers: Laterality: unspecified laterality Lung location: unspecified part of lung Pneumonia type: due to unspecified organism Qualified Code(s): J18.9 - Pneumonia, unspecified organism Code(s): J18.9 - Pneumonia, unspecified organism Status: Acute Assessment and Plan: Comfort measures patient is DNR following family wishes. 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 family prefers bipap to continue for now. # bialteral pneumonia: noted in CT chest. no PE. # tachcardia # Sepsis # hx of muscular dystrophy/Charcot Linh Tooth disease # non ambulatory, wheelchair bound # DNR # comfort measures. Case discussed 17 details. Agree with current plan of care and treatment. Subjective Date/time seen: 11/18/20 11:17 Interval history: Patient was seen during the morning rounds today. Family bedside. No acute distress noted. Review of Systems Review of Systems: ROS unobtainable: Yes unobtainable due to medical condition and unobtainable due to mental status Exam Narrative: Exam Narrative: General appearance: unrespnsvie, restless, on bipap Skin: Normal color, cold to touch Head: Normocephalic, nontraumatic Chest and respiratory: respiratory distress noted on bipap Heart: tachycardic, regular rhthm Abdomen: Soft , non distended Neurologic: Unresponsive, mildly restless on bipap noted Objective Data Vital Signs Vital Signs: Vital Signs - 24 hr 11/17/20 22:04 11/17/20 22:30 11/17/20 22:45 Temperature 36.3 C L Pulse Rate 133 H 124 H Respiratory Rate 8 L 27 H Blood Pressure 152/89 H Pulse Oximetry 79 L 90 90 11/17/20 22:46 11/17/20 22:47 11/17/20 22:50 Temperature Pulse Rate 126 H 126 H 125 H Respiratory Rate Blood Pressure 114/81 Pulse Oximetry 90 89 L 90 11/17/20 22:51 11/17/20 22:56 11/17/20 23:00 Temperature Pulse Rate 125 H 123 H 122 H Respiratory Rate 32 H 31 H Blood Pressure 105/77 98/71 L Pulse Oximetry 88 L 88 L 88 L 11/17/20 23:01 11/17/20 23:15 11/17/20 23:22 Temperature Pulse Rate 120 H 115 H 111 H Respiratory Rate 31 H 33 H 33 H Blood Pressure 102/74 88/72 L Pulse Oximetry 88 L 89 L 89 L 11/17/20 23:26 11/17/20 23:28 11/17/20 23:29 Temperature Pulse Rate 111 H 115 H 114 H Respiratory Rate 21 H 21 H 28 H Blood Pressure 75/58 L 86/68 L 88/69 L Pulse Oximetry 90 85 L 89 L 11/17/20 23:30 11/17/20 23:41 11/17/20 23:45 Temperature Pulse Rate 112 H 104 H 109 H Respiratory Rate 27 H 24 H 19 Blood Pressure 103/76 Pulse Oximetry 88 L 86 L 92 11/17/20 23:46 11/18/20 00:05 11/18/20 00:08 Temperature Pulse Rate 109 H 136 H 119 H Respiratory Rate 22 H 31 H 19 Blood Pressure 110/72 143/109 H Pulse Oximetry 92 92 11/18/20 00:12 11/18/20 00:18 11/18/20 00:26 Temperature Pulse Rate 122 H 139 H 138 H Respiratory Rate 29 H 33 H 30 H Blood Pressure 127/88 Pulse Oximetry 66 L 11/18/20 00:28 11/18/20 00:30 11/18/20 00:31 Temperature 36.6 C Pulse Rate 130 H 129 H Respiratory Rate 32 H 34 H Blood Pressure 177/113 H Pulse Oximetry 68 L 65 L 65 L 11/18/20 00:41 11/18/20 00:42 11/18/20 00:50 Temperature Pulse Rate 134 H 135 H 131 H Respiratory Rate
--- NOTE | 2020-11-18 15:19 | PC.NURSE ---
This patient, Sarabjit Garcia, was transferred to [[facility] ] on 11/18/20 at 1511. Personal belongings sent with patient. Report given to [Ofelia]. Appropriate documentation sent with patient.
--- NOTE | 2020-11-18 15:24 | PC.NURSE ---
Patient received from IMU. Patient in bed and appears comfortable. Family at bedside with patient. Will continue to monitor patient.
[2020-11-19] MEDS: MORPHINE SULFATE (*CRX) 2 MG/ML INJ IV PUSH ×5 (02:46→17:11)
[2020-11-19 03:16] VITALS: BP 103/47; O2SAT 77
[2020-11-19] MEDS: LORazepam INJ (*CRX) 2 MG/ML VIAL IV PUSH ×3 (05:31→17:11)
--- NOTE | 2020-11-19 08:03 | PM.IMPN ---
Progress Note: A&P Assessment and Plan (1) Acute respiratory failure: Qualifiers: Respiratory failure complication: hypoxia Qualified Code(s): J96.01 - Acute respiratory failure with hypoxia Code(s): J96.00 - Acute respiratory failure, unspecified whether with hypoxia or hypercapnia Status: Acute Assessment and Plan: Comfort measures patient is DNR (2) Pneumonia: Qualifiers: Laterality: unspecified laterality Lung location: unspecified part of lung Pneumonia type: due to unspecified organism Qualified Code(s): J18.9 - Pneumonia, unspecified organism Code(s): J18.9 - Pneumonia, unspecified organism Status: Acute Assessment and Plan: Comfort measures patient is DNR following family wishes. 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 family prefers bipap to continue for now. # bialteral pneumonia: noted in CT chest. no PE. # tachcardia # Sepsis # hx of muscular dystrophy/Charcot Linh Tooth disease # non ambulatory, wheelchair bound # DNR # comfort measures. Case discussed with family in detail. Agree with current plan of care and treatment. Subjective Date/time seen: 11/19/20 08:03 Interval history: Patient was seen during the morning rounds today. Family bedside. No acute distress noted. Comfort measures. Review of Systems Review of Systems: ROS unobtainable: Yes unobtainable due to medical condition and unobtainable due to mental status Exam Narrative: Exam Narrative: General appearance: unrespnsvie, restless, on bipap Skin: Normal color, cold to touch Head: Normocephalic, nontraumatic Chest and respiratory: respiratory distress noted on bipap Heart: tachycardic, regular rhthm Abdomen: Soft , non distended Neurologic: Unresponsive, mildly restless on bipap noted Objective Data Vital Signs Vital Signs: Vital Signs - 24 hr 11/18/20 09:33 11/18/20 10:00 11/18/20 12:00 Temperature Pulse Rate 109 H 99 97 Respiratory Rate 30 H Blood Pressure Pulse Oximetry 90 11/18/20 14:00 11/18/20 20:00 11/19/20 03:16 Temperature 36.0 C L Pulse Rate 93 93 Respiratory Rate 20 Blood Pressure 90/44 L 103/47 L Pulse Oximetry 76 L 77 L Intake/Output Intake/Output: Intake & Output 11/16/20 11/17/20 11/18/20 11/19/20 23:59 23:59 23:59 23:59 Intake Total 1050 0 Output Total 50 350 50 Balance -50 700 -50 Meds/Results Medications: Active Medications Generic Name Dose Route Start Last Admin Trade Name Freq PRN Reason Stop Dose Admin Atropine Sulfate 1 - 2 drop 11/18/20 03:20 11/18/20 21:22 Atropine Sulfate 1% Ophth Soln 5 Ml Bottle SUBLINGUAL 2 drop Q4H PRN Administration Secretions Lorazepam 2 mg 11/18/20 03:20 11/19/20 05:31 Lorazepam Inj (*Crx) 2 Mg/Ml Vial IV PUSH 2 mg Q2H PRN Administration Anxiety/Comfort Morphine Sulfate 2 mg 11/18/20 03:20 11/19/20 02:46 Morphine Sulfate (*Crx) 2 Mg/Ml Inj IV PUSH 2 mg Q30M PRN Administration COMFORT Radiology Results: ITS Impressions Chest X-Ray 11/17/20 22:45 IMPRESSION: 1. Diffuse lung disease, consistent with pulmonary edema versus pneumonia. 2. Cardiomegaly. Abdomen X-Ray 11/17/20 22:46 IMPRESSION: 1. Nasogastric tube tip in the stomach. 2. Gaseous distention of large and small bowel, consistent with adynamic ileus versus bowel obstruction. Chest CTA 11/18/20 08:52 IMPRESSION: 1. Extensive mixed groundglass opacification and airspace consolidation with peripheral foci of air collections in the periphery of the lower lobes. Differential diagnosis includes edema,
[2020-11-19] MEDS: ATROPINE SULFATE 1% OPHTH SOLN 5 ML BOTTLE SUBLINGUAL (11:19)
[2020-11-19 14:00] VITALS: BP 142/58; PULSE 111; RESP 16; TEMP 36.9; O2SAT 75
[2020-11-19 14:53] LABS: SARS-CoV-2 RNA PCR Negative
--- NOTE | 2020-11-19 19:53 | PC.NURSE ---
Patient nonresponsive, no heart beat, and no respirations. Charge nurse notified at 19:40 will call hospitalist.
--- NOTE | 2020-12-02 14:02 | P.DN_ITS ---
Discharge Sum: Prov Provider Primary care physician: Hubert Mccall MD Admitting provider: Magan Koroma MD Discharge Sum: Diag PCOD Coronary artery disease Contributing Factors (1) Acute non-ST elevation myocardial infarction (NSTEMI): (2) Pneumonia: Discharge Sum: Summary Date and Time Date of admission: 11/18/20 00:44 Date of : 11/19/20 Summary Details: 80 years old male was admitted complained of having shortness of breath. Patient was found to have acute non ST elevation DE and pneumonia. Patient family opted for comfort measures. Patient was given pain medication and oxygen and made comfortable. Patient on 11/19/2020. Family bedside. Additional Data Confirmation of as documented by pronouncing clinician: no pulse, no respirations, no heart sounds and pupils fixed and dilated Family: at bedside Attending/PCP notified?: Yes Attending physician: Savage La MD Was code activated?: No Autopsy requested?: No trade mark examiner notified?: No Organ bank notified?: No Advance directives: Yes Hospice patient?: No
== END 2020-11-19 19:40 | disposition expired | DRG 871 ==
LOC: ANHED 22:42 → ANHICU 11-18 01:26 → ANHIMU 11-18 06:54 → ANH2MED 11-21 16:41 → ANHICU 11-21 16:41 → ANHIMU 11-21 16:41
PROVIDERS: Admitting Provider Internal Medicine; Emergency Provider Emergency Medicine; PCP Emergency Medicine; Visit Provider Internal Medicine
DX: A41.9 Sepsis, unspecified organism (principal); I21.4 Non-ST elevation (NSTEMI) myocardial infarction; J96.01 Acute respiratory failure with hypoxia; J18.9 Pneumonia, unspecified organism; G60.0 Hereditary motor and sensory neuropathy; Z66 Do not resuscitate; Z20.822 Contact with and (suspected) exposure to COVID-19
CPT/HCPCS: 31500; 36415; 36600; 71275; 80053; 82805; 83735; 83880; 84484; 85025; 85380; 85610; 85730; 87040; 87077; 87186; 87804; 93005; 94660; 96360; 99291; A9270; C9803; J0330; J1650; J1956; J2060; J2250; J2270; J7030; J7120; Q9967; U0003; U0005